=== PATIENT | male | born 1960 | race Caucasian/White ===

== ENCOUNTER 2016-12-13 15:26 | Emergency (ER) | payer OTHER ==
[~2016-12-13] VITALS: Ht 175.3 cm; Wt 104.2 kg
[~2016-12-13 15:26] MED LIST: METF-384 PO; OMEG1CAP91 PO; [UNRECOGNIZED DRUG - OTHER] PO
[2016-12-13 15:34] VITALS: Ht 175.3 cm; Wt 104.2 kg
[2016-12-13] MEDS ORDERED: LEVAQUIN 750MG / 150ML D5W IV STA (16:53)
[2016-12-13] MEDS ORDERED: SODIUM CHLORIDE 0.9% 1000ML 1,000 ML IV STA (16:53)
[2016-12-13] MEDS ORDERED: LORA-741 PO (17:11)
[2016-12-13] MEDS ORDERED: ACET325T96 PO (17:11)
[2016-12-13] MEDS ORDERED: CYAN100073 (17:11)
[2016-12-13] MEDS ORDERED: ASPI81TA28 PO (17:11)
--- NOTE | 2016-12-13 17:16 | DIAGNOSTIC IMAGING REPORT ---
CHEST ONE VIEW PORTABLE CLINICAL HISTORY: Fever and sepsis COMPARISON STUDY: No previous studies for comparison. FINDINGS: The heart is normal in size. There is no failure. There are bibasilar opacities, likely atelectatic. There is no lobar consolidation. There are no pleural effusions.[ IMPRESSION: Linear bibasilar opacities, likely atelectatic. No evidence of lobar consolidation Electronically signed by: Reginaldo Blake M.D. 12/13/2016 5:15 PM Dictated Date/Time: 12/13/2016 5:14 PM
[2016-12-13 17:19] LABS: BASO % 0.2 %; BASO ABS # 0.03 K/uL (0-0.2); COMPLETE YES; EOS % 0.3 %; HEMATOCRIT 43.8 % (42-52); IG% 0.3 %; LYMPH % 13.7 %; LYMPH ABS # 2.33 K/uL (1.2-3.4); MEAN CELL VOLUME 87.1 fL (80-100); MEAN CORPUSCULAR HGB CONC 34.5 g/dl (32-36); MEAN PLATELET VOLUME 9.1 fL (7.4-10.4); MONO % 8.3 %; NEUT % 77.2 %; PLATELET COUNT 347 K/uL (130-400); RED BLOOD COUNT 5.03 M/uL (4.7-6.1); WHITE BLOOD COUNT 17.02 K/uL (4.8-10.8)
[2016-12-13 17:31] LABS: BUN/CREATININE RATIO 11.5 (10-20); CREATININE 1.1 mg/dl (0.60-1.40)
[2016-12-13 17:37] LABS: CKMB/CK RATIO 0.7 (0-3.0)
[2016-12-13] MEDS ORDERED: LEVO-366 PO (18:43)
--- NOTE | 2016-12-13 18:44 | EMERGENCY ROOM VISIT NOTE ---
History Report prepared by Christina: Jacqueline Garcia Under the Supervision of: Dr. Gallo Jones D.O. First contact with patient: 16:49 Chief Complaint: ILLNESS Stated Complaint: TROUBLE BREATHNG, FEVER, COUGH History of Present Illness The patient is a 56 year old male who presents to the Emergency Room with complaints of an intermittent forehead headache starting 3 weeks LINKER UP. The patient currently rates the pain as a 5/10 in severity. The patient states that along with his headache he has also had eye pain and a green productive cough. The patient states that nothing makes his pain better or worse. He states that today he also was experiencing SOB with exertion and abdominal pain causing him to leave work early today. The patient denies any fever, chills, nausea, vomiting, throat pain, congestion or rash. Source of History: patient Onset: 3 weeks LINKER UP Position: head (forehead) Symptom Intensity: 5/10 Timing: intermittent Associated Symptoms: + SOB, + abdominal pain, No chills, No fevers, No nausea, No rash, No sorethroat, No vomiting Note: Patient denies congestion, Review of Systems See HPI for pertinent positives & negatives. A total of 10 systems reviewed and were otherwise negative. Past Medical & Surgical Medical Problems: (1) Sleep apnea Family History No pertinent family history stated. Social History Smoking Status: Never Smoker Marital Status: Housing Status: lives with significant other Occupation Status: employed Current/Historical Medications Scheduled Aspirin (Aspirin Ec), 81 MG PO DAILY Levofloxacin (Levaquin), 500 MG PO DAILY Lorazepam (Ativan), 0.5 MG PO DAILY Metformin Hcl (Glucophage), 1,000 MG PO BID Scheduled PRN Acetaminophen Tab (Tylenol), 325 MG PO for Pain Miscellaneous Medications Cyanocobalamin (B12) Allergies Coded Allergies: No Known Allergies (Unverified , 03/28/14) Physical Exam Vital Signs Date Time Temp Pulse Resp B/P Pulse Ox O2 Delivery O2 Flow Rate FiO2 12/13/16 17:03 87 22 139/84 92 Room Air 12/13/16 16:57 85 12/13/16 15:34 37.6 101 18 151/81 92 Room Air Physical Exam CONSTITUTIONAL/VITAL SIGNS: Reviewed / noted above. GENERAL: Non-toxic in appearance. INTEGUMENTARY: Warm, dry, and [place]. HEAD: Normocephalic. EYES: without scleral icterus or trauma. ENT/OROPHARYNX: clear and moist. LYMPHADENOPATHY/NECK: Is supple without lymphadenopathy or meningismus. RESPIRATORY: Lungs clear and equal. CARDIOVASCULAR: Regular rate and rhythm. GI/ABDOMEN: Soft and mild discomfort to palpation to the epigastric and RUQ. No organomegaly or pulsatile mass. No rebound or guarding. Normal bowel sounds. EXTREMITIES: Warm and well perfused. BACK: No CVA tenderness. NEUROLOGICAL: Intact without focal deficits. PSYCHIATRIC: normal affect. MUSCULOSKELETAL: Normally developed with good muscle tone. Medical Decision & Procedures ER Provider Diagnostic Interpretation: X ray results and stated below per my interpretation and radiology interpretation. CHEST ONE VIEW PORTABLE CLINICAL HISTORY: Fever and sepsis COMPARISON STUDY: No previous studies for comparison. FINDINGS: The heart is normal in size. There is no failure. There are bibasilar opacities, likely atelectatic. There is no lobar consolidation. There are no pleural effusions.[ IMPRESSION: Linear bibasilar opacities, likely atelectatic. No evidence of lobar consolidation Electronically signed by: Reginaldo Blake M.D. 12/13/2016 5:15 PM Dictated Date/Time: 12/13/2016 5:14 PM Laboratory Results 12/13/16 16:55 Red Blood Count 5.03, Mean Corpuscular Volume 87.1, Mean Corpuscular Hemoglobin 30.0, Mean Corpuscular Hemoglobin Concent 34.5, Mean Platelet Volume 9.1, Neutrophils (%) (Auto) 77.2, Lymphocytes (%) (Auto) 13.7, Monocytes (%) (Auto) 8.3, Eosinophils (%) (Auto) 0.3, Basophils (%) (Auto) 0.2, Neutrophils # (Auto) 13.14, Lymphocytes # (Auto) 2.33, Monocytes # (Auto) 1.42, Eosinophils # (Auto) 0.05, Basophils # (Auto) 0.03 12/13/16 16:55 Test 12/13/16 16:55 12/13/16 16:59 White Blood Count 17.02 K/uL (4.8-10.8) Red Blood Count 5.03 M/uL (4.7-6.1) Hemoglobin 15.1 g/dL (14.0-18.0) Hematocrit 43.8 % (42-52) Mean Corpuscular Volume 87.1 fL (80-100) Mean Corpuscular Hemoglobin 30.0 pg (25-34) Mean Corpuscular Hemoglobin Concent 34.5 g/dl (32-36) Platelet Count 347 K/uL (130-400) Mean Platelet Volume 9.1 fL (7.4-10.4) Neutrophils (%) (Auto) 77.2 % Lymphocytes (%) (Auto) 13.7 % Monocytes (%) (Auto) 8.3 % Eosinophils (%) (Auto) 0.3 % Basophils (%) (Auto) 0.2 % Neutrophils # (Auto) 13.14 K/uL (1.4-6.5) Lymphocytes # (Auto) 2.33 K/uL (1.2-3.4) Monocytes # (Auto) 1.42 K/uL (0.11-0.59) Eosinophils # (Auto) 0.05 K/uL (0-0.5) Basophils # (Auto) 0.03 K/uL (0-0.2) RDW Standard Deviation 42.5 fL (36.4-46.3) RDW Coefficient of Variation 13.4 % (11.5-14.5) Immature Granulocyte % (Auto) 0.3 % Immature Granulocyte # (Auto) 0.05 K/uL (0.00-0.02) Anion Gap 9.0 mmol/L (3-11) Est Creatinine Clear Calc Drug Dose 87.1 ml/min Estimated GFR () 85.3 Estimated GFR (Non- 73.6 BUN/Creatinine Ratio 11.5 (10-20) Calcium Level 9.0 mg/dl (8.5-10.1) Total Bilirubin 0.4 mg/dl (0.2-1) Direct Bilirubin 0.1 mg/dl (0-0.2) Aspartate Amino Transf (AST/SGOT) 12 U/L (15-37) Alanine Aminotransferase (ALT/SGPT) 27 U/L (12-78) Alkaline Phosphatase 65 U/L (45-117) Total Creatine Kinase 70 U/L (39-308) Creatine Kinase MB 0.5 ng/ml (0.5-3.6) Creatine Kinase MB Ratio 0.7 (0-3.0) Total Protein 8.0 gm/dl (6.4-8.2) Albumin 3.4 gm/dl (3.4-5.0) Lipase 133 U/L (73-393) Influenza Type A Antigen Neg for Influ A (NEG) Influenza Type B Antigen Neg for Influ B (NEG) Laboratory results as stated above per my review. Medications Administered Medications (Trade) Dose Ordered Sig/Mak Route Start Time Stop Time Status Last Admin Dose Admin Sodium Chloride (Nss 1000ml) 1,000 ml @ 999 mls/hr Q1H1M STAT IV 12/13/16 16:53 12/13/16 17:53 DC 12/13/16 16:57 999 MLS/HR Levofloxacin (Levaquin / D5W) 750 mg NOW STAT IV 12/13/16 16:53 12/13/16 16:56 DC 12/13/16 17:35 750 MG ED Course 1649: Previous medical records were reviewed. The patient was evaluated in room C9. A complete history and physical examination was performed. 1653: Ordered Levofloxacin 750 mg IV, Sodium Chloride 1,000 ml @ 999 mls/hr IV. 1845: On reevaluation, the patient is hemodynamically stable. I discussed the results and findings with the patient. He verbalized agreement of the treatment plan. The patient was discharged home. Medical Decision Differential includes acute coronary syndrome, myocardial infarction, CVA, TIA, anemia, infection, pneumonia, UTI, pyelonephritis, poor nutrition, dehydration, electrolyte disturbance,hypoglycemia. This is a 56-year-old male who presents to the ED with a chief complaint of generalized malaise. The patient states that he has generalized achiness, headache, eye discomfort, generalized body aches as well as a cough productive of green sputum. He's had the symptoms for about 3 weeks. He feels that his symptoms are related to a cold but is not improving. He came in for evaluation of this because his lack of improvement. He is afebrile. His heart rate was 101. His physical exam was generally unremarkable. He does not have any tenderness to percussion of the sinuses. The throat appeared clear. Lungs are mostly clear. Abdomen soft and nontender. There are no rashes. The patient had a chest x-ray was negative for acute disease. They did say there is some linear basilar opacities which were felt to be atelectasis. White blood cell count was 17,000. Complete metabolic panel was normal. Flu was negative. The patient was given IV Levaquin. He was given IV fluids. He was discharged on Levaquin. He was told to follow up with his PCP in 1-3 days for recheck and return for worsening. Clinically the patient seems to have symptoms suggestive of bronchitis or pneumonia with a productive cough. He has generalized malaise and achiness as well as a headache. Clinically she does not have findings to suggest meningitis. He denies any nasal congestion or rhinorrhea and has no tenderness percussion of the sinuses. I doubt sinusitis. Impression Primary Impression: Pneumonia Scribe Attestation The scribe's documentation has been prepared under my direction and personally reviewed by me in its entirety. I confirm that the note above accurately reflects all work, treatment, procedures, and medical decision making performed by me. Departure Information Dispostion Home / Self-Care Prescriptions Levofloxacin (Levaquin) 500 Mg Tab 500 MG PO DAILY for 10 Days, #10 TAB Prov: Gallo Jones D.O. 12/13/16 Referrals RV. Bautista MD (PCP) Forms HOME CARE DOCUMENTATION FORM, IMPORTANT VISIT INFORMATION, WORK / SCHOOL INSTRUCTIONS Patient Instructions ED Pneumonia, My [facility] Additional Instructions Follow-up with your doctor for further care and evaluation in 1-2 days. Return to the emergency department for worsening or new symptoms or any concerns. You have been examined and treated today on an emergency basis only. This is not a substitute for, or an effort to provide, complete comprehensive medical care. It is impossible to recognize and treat all injuries or illnesses in a single emergency department visit. It is therefore important that you follow up closely with your doctor. Call as soon as possible for an appointment. Levaquin as prescribed.
[2016-12-13 19:26] VITALS: BP 128/73; PULSE 81; TEMP 36.9; O2SAT 92
== END 2016-12-13 19:28 | disposition home or self-care (01) ==
LOC: C.EDB 15:28 → C.EDC 19:28
DX: J18.9 Pneumonia, unspecified organism (principal); R51 Headache; H57.10 Ocular pain, unspecified eye; R10.9 Unspecified abdominal pain; G47.30 Sleep apnea, unspecified; Z79.82 Long term (current) use of aspirin; Z79.84 Long term (current) use of oral hypoglycemic drugs; Z79.899 Other long term (current) drug therapy

== ENCOUNTER → 2016-12-20 | Outpatient (CLI) | payer OTHER ==
[~2016-12-20] VITALS: Ht 176.5 cm; Wt 103.7 kg
[~2016-12-20] MED LIST changes: +ACET325T96 PO; +ASPI81TA28 PO; +CYAN100073; +LEVO-366 PO; +LORA-741 PO; -OMEG1CAP91 PO; -[UNRECOGNIZED DRUG - OTHER] PO
[2016-12-20 15:28] VITALS: BP 159/84; PULSE 82; Ht 176.5 cm; Wt 103.7 kg
== END | disposition home or self-care (01) ==
LOC: C.NEUR 15:07
PROVIDERS: ATTEND Internal Medicine Pulmonary Disease
DX: G47.33 Obstructive sleep apnea (adult) (pediatric) (principal)

== ENCOUNTER → 2017-01-12 | Outpatient (CLI) | payer OTHER ==
[~2017-01-12] MED LIST changes: -LEVO-366 PO
[2017-01-12 09:55] LABS: ALT/SGPT 40 U/L (12-78); BLOOD UREA NITROGEN 13 mg/dl (7-18); CALCIUM 8.9 mg/dl (8.5-10.1); CARBON DIOXIDE 27 mmol/L (21-32); CHLORIDE 104 mmol/L (98-107); CHOLESTEROL 195 mg/dl (0-200); GLUCOSE 123 mg/dl (70-99); POTASSIUM 4.1 mmol/L (3.5-5.1); SODIUM 141 mmol/L (136-145); TRIGLYCERIDES 270 mg/dl (0-150); VERY LOW DENSITY LIPOPROT CALC 54 mg/dl
[2017-01-12 10:04] LABS: ESTIMATED AVERAGE GLUCOSE 137 mg/dl; HA1C FLAG Normal (Normal)
[2017-01-12 10:05] LABS: ALB/GLOB RATIO 0.9 (0.9-2); ALKALINE PHOSPHATASE 72 U/L (45-117); AST/SGOT 18 U/L (15-37); CHOLESTEROL/HDL RATIO 5.1; HDL CHOLESTEROL 38 mg/dl; LDL CHOLESTEROL CALCULATED 103 mg/dl
== END | disposition home or self-care (01) ==
LOC: C.LAB1850 06:59
PROVIDERS: ATTEND Internal Medicine
DX: E11.9 Type 2 diabetes mellitus without complications (principal)